=== PATIENT | female | born 1985 | race African-American/Black ===

== ENCOUNTER 2016-06-10 09:11 | Emergency (ER) | payer OTHER ==
[2016-06-10 09:17] VITALS: TEMP 98.2; BMI 30.2
[2016-06-10] MEDS ORDERED: OXYCODONE/APAP 5/325MG COMBO TABLET PO ONE (10:08)
--- NOTE | 2016-06-10 10:08 | PDOC ---
Attending Attestation - Resident Resident Name: Adriano Burris - ED Attending Attestation I have performed the following: I have examined & evaluated the patient, The case was reviewed & discussed with the resident, I agree w/resident's findings & plan - HPI HPI: 06/10/16 10:27 31y F ta approx 19 weeks presents with lower abdominal pain that is crampy , worse in the lower abdomen and radiates bilaterally around to the back, without associated n/v, f/c, vag bleeding, pt does endorse some yellowish discharge. on exam pt has a mildly diffusely tender lower abdomen w/o rebound/ guarding, her pelvic exam revealed some whitish discharge, no lesions, bleeding. bimanual exam deferred due to 2nd trimester . pt taking tylenol/motrin w/o improvement last dose of meds last night. pt notes she had US showing fibroids and her It Security Architect thought it was degenerative fibroids - will obtain blood work ua, abd US will reassess 06/10/16 15:25 US c/w fibroid uterus pt feeling improved with pain meds discussed the risks of taking percocet with the patient but pt undestands and accepts the risks states she thinks she needs it as the OTC meds were not sufficient. will have pt fu with her americanization teacher return precautions were discussed - Physicial Exam PE: 06/12/16 17:23 see above - Medical Decision Making 06/12/16 17:23 see aove
--- NOTE | 2016-06-10 10:14 | PDOC ---
History of Present Illness - General Chief Complaint: Pain, Acute Stated Complaint: ABD PAIN (19 WKS ) Time Seen by Provider: 06/10/16 09:35 History Source: Patient Exam Limitations: No Limitations - History of Present Illness Travel History: No Initial Comments: 06/10/16 10:08 31 yo F A1 with no significant PMHx presents with 3 day history of abdominal pain. She describes intermittent 10/10 cramp-like suprapubic pain that sometime radiates to her lower back bilaterally but more so on R side. No alleviating or aggravating factors. Has tried tylenol and ibuprofen with no relief. She saw or OB on 06/08/16 and had US done. Fetus looked fine and she was told pain most likely from degenerating fibroids which they have been monitoring.Given Tylenol and ibuprofen with no relief. Denies vaginal bleeding , fever, chills, nausea, or vomiting. Denies CP, TORRES, SOB, palpitations, diarrhea or constipation. Past History - Travel Traveled outside of the country in the last 30 days: No Close contact w/someone who was outside of country & ill: No - Past Medical History Allergies/Adverse Reactions: Allergies Allergy/AdvReac Type Severity Reaction Status Date / Time No Known Allergies Allergy Verified 06/10/16 09:17 Home Medications: Ambulatory Orders NK [No Known Home Medication] 06/10/16 Other medical history: PATIENT DENIES MEDICAL HISTORY - Surgical History Abdominal Surgery: Yes (UMBILICAL HERNIA) - Reproductive History Is Patient Now?: Yes (#): 2 Para: 1 - Psycho/Social/Smoking Cessation Hx Anxiety: No Suicidal Ideation: No Smoking Status: No Smoking History: Never smoked Have you smoked in the past 12 months: No Number of Cigarettes Smoked Daily: 0 Hx Alcohol Use: No Drug/Substance Use Hx: No Substance Use Type: None Review of Systems - Review of Systems Able to Perform ROS?: Yes Is the patient limited Korean proficient: No ABD/GI: Yes: Abdominal cramping. No: Nausea, Vomiting : Yes: Discharge (scant white). No: Dysuria Psychiatric: Yes: Anxiety All Other Systems: Reviewed and Negative *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 - Vital Signs Last Vital Signs Temp Pulse Resp BP Pulse Ox 98.2 F 93 H 18 114/71 100 06/10/16 09:15 06/10/16 09:15 06/10/16 09:15 06/10/16 09:15 06/10/16 09:15 - 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 General Appearance: Yes: Mild Distress HEENT: positive: EOMI, CASEY Neck: positive: Supple Respiratory/Chest: positive: Lungs Clear, Normal Breath Sounds. negative: Respiratory Distress, Accessory Muscle Use Cardiovascular: positive: Regular Rhythm, Regular Rate, S1, S2. negative: Edema , JVD, Murmur Female Pelvic Exam: positive: normal external exam, discharge, uterus (gravid ) . negative: vaginal bleeding Gastrointestinal/Abdominal: positive: Normal Bowel Sounds, Soft Musculoskeletal: positive: Normal Inspection, CVA Tenderness Extremity: positive: Normal Inspection, Normal Range of Motion Integumentary: positive: Normal Color, Dry, Warm. negative: Cyanotic, Erythema Neurologic: positive: automatic engraver II-XII NML intact, Fully Oriented, Alert, Normal Mood/ Affect, Normal Response, Motor Strength 5/ ED Treatment Course - LABORATORY CBC & Chemistry Diagram: 06/10/16 10:50 06/10/16 10:50 - RADIOLOGY Radiograph Interpretation: 06/10/16 13:37 EXAM#: TYPE/EXAM: RESULT: [id number] US/ LIMITED US Pelvis pain Pelvis ultrasound, transabdominal. The uterus is gravid with a single intrauterine fetus identified. Average sonographic gestational age is 19 weeks 3 days. Estimated weight is 274 g. Fluid is present in the stomach and in the urinary bladder. There is no evidence of hydrocephalus. heart rate is 155 bpm There is a hypoechoic anterior myometrial mass measuring 6.7 x 5.7 cm consistent with a fibroid. Another adjacent anterior myometrial masses present measuring 5.5 x 4.9 cm consistent with a fibroid. There is no free fluid in the cul-de-sac IMPRESSION: Single live intrauterine in cephalic presentation with average sonographic gestational age of 19 weeks 3 days. Follow -up for detailed anatomy evaluation is recommended Fibroid uterus with the largest fibroid measuring 6.7 x 5.7 cm. Reported By: Arlene Holder MD [id number] Medical Decision Making - Medical Decision Making 06/10/16 10:17 A:31 yo F A1 with no significant PMHx presents with 3 day history of abdominal pain. P: * Will send stat labs (CBC,CMP,UA, and quantitative BHcg). * transvaginal US and pain control. 06/10/16 13:34 * Labs WNL * Tranvaginal US results above. Pain most likely fibroids. * Pain control adequate with oxycodone. * Will give 7 tabs to go home a return precautions. *DC/Admit/Observation/Transfer Diagnosis at time of Disposition: Uterine fibroids affecting - Discharge Dispostion Disposition: HOME Admit: No - Patient Instructions Printed Discharge Instructions: DI for Uterine Fibroids Additional Instructions: Follow up with your ELECTRICIAN SECOND for normal scheduled care. Take pain meds as needed. Regular diet. Increase activity as tolerated. If pain worsens and develop fevers, chills, nausea or vomiting please return to ER.
[2016-06-10] MEDS ORDERED: OXYCODONE/APAP 5/325MG COMBO TABLET ONE (10:32)
[2016-06-10 10:57] LABS: PH,URINE 6.5 (5.0-8.0); URINE APPEARANCE CLEAR; URINE BILIRUBIN NEGATIVE (NEGATIVE); URINE COLOR LT. YELLOW; URINE GLUCOSE (UA) NEGATIVE (NEGATIVE); URINE KETONE NEGATIVE (NEGATIVE); URINE LEUK ESTERASE NEGATIVE (NEGATIVE); URINE NITRITE NEGATIVE (NEGATIVE); URINE PROTEIN NEGATIVE (NEGATIVE); URINE UROBILINOGEN 0.2 E.U/dl E.U./dl (0.2-1.0)
[2016-06-10 11:04] LABS: URINE BLOOD 3+ (NEGATIVE)
[2016-06-10 11:05] LABS: BASOPHIL 0.4 % (0-2.0); EOSINOPHIL 0.7 % (0-4.5); MCH 26.8 pg (25.7-33.7); MCHC 33.1 g/dl (32.0-36.0); MEAN CELL VOLUME 80.8 fl (80-96); MEAN PLT VOLUME 7.9 fl (7.5-11.1); NEUTROPHILS 73.4 % (42.8-82.8); PLATELET COUNT 234 K/MM3 (134-434); RDW 13.5 % (11.6-15.6); WHITE BLOOD COUNT 9.1 K/mm3 (4.0-10.0)
[2016-06-10 11:05] LABS: URINE BACTERIA RARE /hpf (NONE SEEN); URINE MUCUS RARE; URINE RBC 4 /hpf (0-3); URINE WBC 2 /hpf (3-5)
[2016-06-10 11:39] LABS: ALBUMIN 2.7 g/dl (3.4-5.0); ANION GAP 9 (8-16); BILIRUBIN,TOTAL 0.4 mg/dL (0.2-1.0); CALCIUM 8.3 mg/dL (8.5-10.1); CO2 23 mmol/L (21-32); CREATININE 0.5 mg/dL (0.55-1.02); GLUCOSE,RANDOM 67 mg/dL (74-106); SGOT/AST 15 U/L (15-37); SGPT/ALT 17 U/L (12-78); TOT PROT 6.5 g/dl (6.4-8.2)
[2016-06-10 11:54] LABS: ALK PHOS 75 U/L (45-117)
[2016-06-10 13:58] VITALS: BP 122/68; PULSE 84
== END 2016-06-10 13:59 | disposition home or self-care (01) ==
LOC: JER 09:11
DX: O34.12 Maternal care for benign tumor of corpus uteri, second trimester (principal); D25.0 Submucous leiomyoma of uterus; Z3A.19 19 weeks gestation of pregnancy
CPT/HCPCS: 36415; 76815-TC; 80053; 81003; 81015; 84702; 85025; 87491; 87591; 99282-25

== ENCOUNTER 2016-11-04 09:15 | Inpatient (IN) | payer OTHER ==
[2016-11-04] MEDS ORDERED: ELECTROLYTE-148 SOLN 500 ML IV ONE (09:30)
[2016-11-04 09:51] VITALS: BMI 34.9
[2016-11-04] MEDS: ELECTROLYTE-148 SOLN 1,000 ML IV SCH (11:00)
[2016-11-04] MEDS ORDERED: DEXTROSE 5%-LACTATED RINGERS 1,000 ML IV SCH (11:30)
--- NOTE | 2016-11-04 11:52 | HP ---
Past Medical History - Primary Care Physician PCP:: Dandy Cho - Admission Chief Complaint: 31yo P1 with at EGA 39wks and prior Section admitted for repeat delivery. 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 Cardiovascular: No: AFIB, Aneurysm, Aortic Insufficiency, Aortic Stenosis, CAD, CHF, Deep Vein Thrombosis, HTN, Hyperlipdemia, PR, Mitral Insufficiency, Mitral Stenosis, Murmur, Pulmonary Hypertension, Other Pulmonary: No: Asthma, Bronchitis, Cancer, COPD, O2 Dependent, Pneumonia, Previously Intubated, Pulmonary Embolus, Pulmonary Fibrosis, Sleep Apnea, Other Gastrointestinal: Yes: GERD Hepatobiliary: No: Cirrhosis, Cholelithiasis, Cholecystitis, Choledocholithiasis , Hepatitis A, Hepatitis B, Hepatitis C, Other Renal/: No: Renal Failure, Renal Inusuff, BPH, Cancer, Hematuria, Hemodialysis , Neurogenic Bladder, Renal Calculi, UTI, Other Reproductive: Yes: Fibroids (multiple) ...: 3 ...Para: 1 ( Delivery) ...Term: 1 ...Induced : 1 ...LMP: 02/05/16 ... Weeks Gestation by Dates: 39 ...EDC by Dates: 11/12/16 ...EDC by Sono: 11/11/16 Heme/Onc: Yes: Anemia Infectious Disease: No: AIDS, C-Diff, Herpes Zoster, HIV, MRSA, STD's, Tuberculosis, VREF, Other Psych: No: Addictions, Anxiety, Bipolar, Depression, Panic, Psychosis, Schizophrenia, Other Musculoskeletal: No: Bursitis, Chronic low back pain, Hemiparesis, Hemiplegia, Osteoarthritis, Paraplegia, Other Rheumatology: No: Fibromyalgia, Gout, Lupus, Rheumatoid Arthritis, Sarcoidosis, Vasculitis, Other ENT: No: Allergic Rhinitis, Sinusitis, Other Endocrine: No: Boston's Disease, Beulah's Disease, Diabetes Insipidus, Diabetes Mellitus, Hyperparathyroidism, Hyperthyroidism, Hypothyroidism, Osteopenia, SIADH, Other Dermatology: No: Basal Cell, Cellulitis, Eczema, Melanoma, Psoriasis, Squamous Cell, Other - Past Surgical History Past Surgical History: Yes: Hernia Repair (umbilical) Hx Myomectomy: No Hx Transabdominal Cerclage: No - Smoking History Smoking history: Never smoked Have you smoked in the past 12 months: No Aproximately how many cigarettes per day: 0 - Alcohol/Substance Use Hx Alcohol Use: No History of Substance Use: reports: None - Social History Usual Living Arrangement: Yes: With Spouse, With Child ADL: Independent History of Recent Travel: No Home Medications - Allergies Allergies/Adverse Reactions: Allergies Allergy/AdvReac Type Severity Reaction Status Date / Time No Known Allergies Allergy Verified 09/29/16 12:02 - Home Medications Home Medications: Ambulatory Orders Vitamins (Sjr) - 1 tab PO DAILY 06/27/16 Ferrous Sulfate 325 mg PO DAILY 09/29/16 Family Disease History - Family Disease History Family History: Denies Review of Systems - Review of Systems Constitutional: reports: No Symptoms Eyes: reports: No Symptoms HENT: reports: No Symptoms Neck: reports: No Symptoms Cardiovascular: reports: No Symptoms Respiratory: reports: No Symptoms Gastrointestinal: reports: No Symptoms Genitourinary: reports: No Symptoms Breasts: reports: No Symptoms Reported Musculoskeletal: reports: No Symptoms Integumentary: reports: No Symptoms Neurological: reports: No Symptoms Endocrine: reports: No Symptoms Hematology/Lymphatic: reports: No Symptoms Psychiatric: reports: No Symptoms Pain Intensity: 0 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 - Maternity Vital Signs: Vital Signs Temperature 98.0 F 11/04/16 09:42 Pulse Rate 100 H 11/04/16 09:42 Respiratory Rate 18 11/04/16 09:42 Blood Pressure 106/78 11/04/16 09:42 O2 Sat by Pulse Oximetry (%) Constitutional: Yes: Well Nourished, No Distress, Calm Eyes: Yes: WNL, Conjunctiva Clear HENT: Yes: WNL, Atraumatic, Normocephalic Neck: Yes: WNL, Supple, Trachea Midline Cardiovascular: Yes: WNL, Regular Rate and Rhythm Lungs: Clear to auscultation, Normal air movement - Abdominal Exam/OB Fundal Height: 40 Number of Fetuses: Single Presentation: Vertex Contractions: Yes Regularity: Irritability Intensity: Mild Monitor Mode: External Heart Rate (range): 130 Heart Rate Location: Midline Category: I Accelerations: Non-Uniform Decelerations: None - Vaginal Exam/OB Vaginal Bleediing: No Speculum Exam: No Dilatation (cm): 0 Amniotic Membrane Status: Intact Presentation: Vertex/Position Station: -4 - 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 Musculoskeletal: Yes: WNL Extremities: Yes: WNL Edema: No Integumentary: Yes: WNL Deep Tendon Reflex Grade: Normal +2 ...Motor Strength: WNL Psychiatric: Yes: WNL, Alert Hemorrhage Risk Assessment - Risk Factors Medium Risk Factors: Yes: Large myomas Risk Score: 1 Risk Level: Medium Risk Imaging - Results Ultrasound: Report Reviewed Assessment/Plan 31yo P1 with at EGA 39wks and prior Section admitted for repeat delivery. We discussed the risks and benefits of C/S at length, including but not limited to scarring, pain, bleeding, infection, injury to underlying organs and structures, need for additional surgery to repair/treat any problems or complications, complications/injuries, etc. I emphasized the increased risks of bleeding due to large fibroids, prior abdominal surgery, anterior placenta. The risks of hysterectomy explained. The pt verbalized her understanding and requested to proceed with surgery.
[2016-11-04] MEDS: OXYTOCIN 20 UNITS in 0.9% NS 1,000 ML IV SCH ×2 (14:00→21:30)
[2016-11-04] MEDS ORDERED: METHYLERGONOVINE MALEATE 0.2 MG/1 ML AMP IM PRN (14:30)
[2016-11-04] MEDS ORDERED: ONDANSETRON 4 MG/2 ML VIAL IVPB PRN (14:31)
[2016-11-04] MEDS ORDERED: WITCH HAZEL 50% (TUCKS) 40 PAD/JAR PAD TP PRN (14:35)
[2016-11-04] MEDS ORDERED: SENNOSIDES/DOCUSATE COMBO (SENNA PLUS) TABLET (UD) PO PRN (14:35)
--- NOTE | 2016-11-04 15:52 | OP ---
Operative Note - Note: Operative Date: 11/04/16 Pre-Operative Diagnosis: at EGA 39wks. Prior C/S. Fibroid uterus. Anemia Operation: Repeat LT C/S Findings: large uterine fibroids above the MAGGY, live baby girl in vtx presentation, no meconium, 9/9. Normal ovaries and Fallopian tubes. Post-Operative Diagnosis: Same as Pre-op Surgeon: Dandy Cho Forest Patrolman: Ruiz Prater Anesthesiologist/TIRE DUSTER: Arianna Esqueda Anesthesia: Spinal Specimens Removed: Placenta Estimated Blood Loss (mls): 850 Drains & Tubes with Location: Danielle cath Drains, Volume Out (mls): 300 Blood Volume Replaced (mls): 0 Fluid Volume Replaced (mls): 1,500 Operative Report Dictated: Yes
--- NOTE | 2016-11-04 15:58 | PN ---
Delivery - Delivery Section: Repeat, Low Flap Transverse Type of Anesthesia: Spinal Episiotomy/Laceration: None EBL (cc): 850 Delivery, Single - Stages of Labor Date of Delivery: 11/04/16 Time of Delivery: 13:10 Date Placenta Delivered: 11/04/16 Time Placenta Delivered: 13:11 Placenta: Yes: Manual Removal, Normal Configuration - Condition of Mule Developer/Plant Assigner Present: Yes Name: Rokc Winters Gender: Female Weight: 3.317 kg Position: OA Total Hours ROM (Hrs/Mins): 1M - 1 Minute Total Score: 9 5 Minutes Total Score: 9 - Feeding Plan Initial Plan: Elected not to breastfeed exclusively throughout hospitalization Remarks - Remarks Remarks: Large uterine fibroids throughout the uterus but above MAGGY.
[2016-11-04] MEDS: IBUPROFEN 800 MG/8 ML IJ IVPB PRN ×2 (16:09→23:16)
[2016-11-05] MEDS: SIMETHICONE 80 MG TAB.CHEW (FP) PO PRN ×4 (05:30→20:46)
[2016-11-05] MEDS: IBUPROFEN 600 MG TABLET (FP) PO PRN ×4 (05:31→20:46)
[2016-11-05 07:24] LABS: BASOPHIL 0.4 % (0-2.0); EOSINOPHIL 0.4 % (0-4.5); MCH 26.8 pg (25.7-33.7); MCHC 32.8 g/dl (32.0-36.0); MEAN CELL VOLUME 81.9 fl (80-96); MEAN PLT VOLUME 8.2 fl (7.5-11.1); NEUTROPHILS 75.3 % (42.8-82.8); PLATELET COUNT 177 K/MM3 (134-434); RDW 14.8 % (11.6-15.6)
--- NOTE | 2016-11-05 08:54 | PN ---
Progress Note, Physician Chief Complaint: Pt. not yet out of bed. pain controlled, no anesthesia complaints. - Current Medication List Current Medications: Active Medications Bisacodyl (Dulcolax Suppository -) 10 mg RC PRN PRN PRN Reason: CONSTIPATION Diphenhydramine HCl (Benadryl Injection -) 25 mg IVPUSH Q4H PRN PRN Reason: Pruritis Last Admin: 11/04/16 21:59 Dose: 25 mg Diphtheria/Tetanus/Acell Pertussis (Boostrix -) 0.5 ml IM .ONCE ONE Stop: 11/05/16 10:01 Enoxaparin Sodium (Lovenox -) 40 mg SQ DAILY [facility] Dextrose/Lactated Ringer's (D5-Lr -) 1,000 mls @ 125 mls/hr IV ASDIR [facility] Oxytocin/Sodium Chloride (Normal Saline+20 Units Oxytocin -) 1,000 mls @ 125 mls/hr IV ASDIR [facility] Last Admin: 11/04/16 21:30 Dose: 125 mls/hr Parenteral Electrolytes (Plasma-Lyte 148 -) 1,000 mls @ 125 mls/hr IV ASDIR [facility] Last Admin: 11/04/16 11:00 Dose: 125 mls/hr Ibuprofen (Motrin -) 600 mg PO Q4H PRN PRN Reason: PAIN Last Admin: 11/05/16 05:31 Dose: 600 mg Ibuprofen (Caldolor Injection -) 800 mg IVPB Q8H PRN PRN Reason: PAIN OR FEVER Last Admin: 11/04/16 23:16 Dose: 800 mg Methylergonovine Maleate (Methergine Injection -) 0.2 mg IM Q4H PRN PRN Reason: Excessive Bleeding (L&D) Oxycodone HCl (Roxicodone -) 5 mg PO Q4H PRN PRN Reason: PAIN LEVEL 1-5 Multivit/Folic Acid/Iron ( Vitamins (Sjr) -) 1 tab PO DAILY [facility] Senna/Docusate Sodium (Pericolace -) 2 tablet PO HS PRN PRN Reason: CONSTIPATION Simethicone (Mylicon -) 80 mg PO Q4H PRN PRN Reason: GAS Last Admin: 11/05/16 05:30 Dose: 80 mg Witch Darya/Glycerin (Tucks Pads -) 1 pad TP PRN PRN PRN Reason: PAIN - Objective Vital Signs: Vital Signs Temperature 98.5 F 11/05/16 06:00 Pulse Rate 77 11/05/16 06:00 Respiratory Rate 18 11/05/16 06:00 Blood Pressure 120/76 11/05/16 06:00 O2 Sat by Pulse Oximetry (%) 99 11/04/16 14:15 Constitutional: Yes: Well Nourished, No Distress, Calm Musculoskeletal: Yes: WNL Neurological: Yes: WNL, Alert, Oriented ...Motor Strength: WNL Labs: CBC, BMP 11/05/16 07:05 Assessment/Plan POD#1 s/p repeat under spinal with duramorph. Narayan rollins. D/C from anesthesia care once she ambulates and voids.
[2016-11-05] MEDS: oxyCODONE HCL 5 MG TABLET PO PRN ×3 (09:16→20:47)
[2016-11-05] MEDS: ENOXAPARIN NA (PORCINE) 40 MG/0.4 ML DISP.SYRIN SQ SCH (09:17)
[2016-11-05] MEDS: PRENATAL VITAMINS W/ FOLIC ACID TABLET (FP) PO SCH (09:17)
--- NOTE | 2016-11-05 10:45 | PN ---
Progress Note (short form) - Note Progress Note: pod 1 doing well, has cramps , no excess vaginal bleeding CBC, BMP 11/05/16 07:05 Last Vital Signs Temp Pulse Resp BP Pulse Ox 98.5 F 77 18 120/76 99 11/05/16 06:00 11/05/16 06:00 11/05/16 06:00 11/05/16 06:00 11/04/16 14:15 abdomen soft, no distension, BS present , no cva incision dry, clean no calf tenderness no excess vaginal bleeding plan ambulate , pain management, advance diet
[2016-11-05] MEDS ORDERED: DOCUSATE SODIUM 100 MG CAPSULE (FP) PO PRN (10:47)
[2016-11-05] MEDS ORDERED: DIPHTH,PERTUSS(ACELL),TET 0.5 ML DISP.SYRIN IM ONE (11:00)
[2016-11-05] MEDS ORDERED: FLU VACC QS2017-18 36MOS UP/PF 60 MCG/0.5 ML SYRINGE IM ONE (11:00)
[2016-11-05] MEDS ORDERED: BISACODYL 10 MG SUPP.RECT RC PRN (14:30)
--- NOTE | 2016-11-05 19:23 | OP ---
DATE OF OPERATION: 11/04/2016 PREOPERATIVE DIAGNOSES: at estimated gestational age of 39 weeks and 0 days; previous section; fibroid uterus; anemia. POSTOPERATIVE DIAGNOSES: at estimated gestational age of 39 weeks and 0 days; previous section; fibroid uterus; anemia; delivered. PROCEDURE: Repeat low transverse section via Pfannenstiel skin incision. SURGEON: Dandy Cho MD CAMP RECREATION SPECIALIST: Ruiz Prater MD JUSTIFICATION FOR CAMP RECREATION SPECIALIST: Surgical complexity and necessity for safe operation. ANESTHESIOLOGIST: Arianna Esqueda DO ANESTHESIA: Spinal. COMPLICATIONS: None. ESTIMATED BLOOD LOSS: 850 mL URINE OUTPUT: 300 mL of clear urine at the end of the procedure. INTRAVENOUS FLUIDS: 1500 mL of crystalloids. COMPLICATIONS: None. PATHOLOGY: Placenta. FINDINGS: Markedly enlarged, gravid uterus with multiple fibroids throughout the uterus. Some of the fibroids were large. However, all of the fibroids were above the lower uterine segment. Live baby girl in vertex presentation. head below the fibroids. No meconium in amniotic fluid. Apgars 9 and 9. Normal ovaries and fallopian tubes. Baby's weight is 3317 g. DESCRIPTION OF PROCEDURE: The patient was met preoperatively. Risks, benefits, and alternatives of surgery were discussed in details. All questions were answered. The patient was then brought to the OR with the IV running. She was placed on the surgical table in the sitting position. The spinal anesthesia was achieved without difficulty. The patient was then placed in a supine position with a leftward tilt. A Danielle catheter was introduced and left to drain to gravity. The patient was then prepped and draped in the usual sterile fashion. A timeout procedure was conducted as per standard protocol. The surgeons then proceeded with the operation. A Pfannenstiel skin incision was made approximately 2-3 cm above the pubic symphysis. The incision was carried down to the level of fascia. The fascia was incised in the midline, and the incision was extended bilaterally using Peñaloza scissors. The fascia was then dissected away from the rectus muscles superiorly and inferiorly. The rectus muscles were in the midline bluntly. The peritoneum was identified and entered sharply. The peritoneal incision was extended superiorly and inferiorly. The lower uterine segment was noted to be thin but free of fibroids. The bladder peritoneum was dissected away from the lower uterine segment using sharp dissection. The bladder was reflected using a Jaylon retractor. The lower uterine segment was incised transversely using a knife. The uterine incision was then extended bilaterally using bandage scissors. The fetus was delivered from vertex presentation without complications. The umbilical cord was clamped and cut. The baby was crying spontaneously and handed to the waiting airport refueling handler. The placenta was then removed manually without complications. The uterine cavity was cleared of all clots and debris using laparotomy pads. The uterine incision was then closed using a 0 Biosyn suture in a running locking stitch with good hemostasis and approximation. The uterine incision was then imbricated using a secondary layer of closure with a 0 Biosyn suture. The bladder peritoneum was also approximated using a 2-0 chromic suture. Good hemostasis was noted. The operative site was irrigated using copious amounts of normal saline. Once the saline was aspirated, good hemostasis was confirmed. The abdominal peritoneum was then closed using a 2-0 chromic suture in a running stitch. The rectus muscles were approximated in the midline using several interrupted 2-0 chromic sutures. The fascia was then closed using a 0 Vicryl suture with a running stitch. The subcutaneous adipose tissues were approximated to eliminate space with several 2-0 chromic sutures. The skin was closed with a 4-0 Vicryl suture using a subcutaneous stitch. Sponge, lap, and needle counts were correct. The uterus was noted to be well contracted with good hemostasis. The patient was transferred to the recovery room awake and in stable condition. Bibi [id number]
[2016-11-06] MEDS: IBUPROFEN 600 MG TABLET (FP) PO PRN ×4 (05:25→22:09)
[2016-11-06] MEDS: SIMETHICONE 80 MG TAB.CHEW (FP) PO PRN ×4 (05:25→22:08)
[2016-11-06] MEDS: oxyCODONE HCL 5 MG TABLET PO PRN ×4 (05:26→22:08)
[2016-11-06] MEDS ORDERED: PRENATAL VITAMINS W/ FOLIC ACID TABLET (FP) PO SCH (10:00)
[2016-11-06] MEDS: FERROUS SO4 325 MG TABLET (FP) PO SCH (10:17)
[2016-11-06] MEDS: ENOXAPARIN NA (PORCINE) 40 MG/0.4 ML DISP.SYRIN SQ SCH (10:17)
[2016-11-06] MEDS: PRENATAL VITAMINS W/ FOLIC ACID TABLET (FP) PO SCH (10:18)
--- NOTE | 2016-11-06 14:02 | PN ---
Progress Note (short form) - Note Progress Note: pod 2 s/p c/s passing gas , has mild cramps CBC, BMP 11/05/16 07:05 Last Vital Signs Temp Pulse Resp BP Pulse Ox 97.9 F 95 H 20 116/70 99 11/05/16 19:00 11/05/16 19:00 11/05/16 19:00 11/05/16 19:00 11/04/16 14:15 abdomen soft, no distension , no cva.incision dry, clean, healing well no calf tenderness no calf tenderness plan ambulate, cbc in am
[2016-11-07] MEDS: IBUPROFEN 600 MG TABLET (FP) PO PRN ×4 (04:03→21:49)
[2016-11-07] MEDS: SIMETHICONE 80 MG TAB.CHEW (FP) PO PRN ×3 (04:03→21:48)
[2016-11-07] MEDS: oxyCODONE HCL 5 MG TABLET PO PRN ×2 (04:04→11:08)
[2016-11-07] MEDS: ACETAMINOPHEN 325 MG TABLET (FP) PO PRN ×2 (04:07→21:50)
[2016-11-07 06:57] LABS: BASOPHIL 0.4 % (0-2.0); EOSINOPHIL 2.7 % (0-4.5); MCH 26.1 pg (25.7-33.7); MCHC 31.8 g/dl (32.0-36.0); MEAN CELL VOLUME 82.1 fl (80-96); MEAN PLT VOLUME 8.5 fl (7.5-11.1); NEUTROPHILS 59.2 % (42.8-82.8); PLATELET COUNT 207 K/MM3 (134-434); RDW 14.8 % (11.6-15.6); WHITE BLOOD COUNT 6.2 K/mm3 (4.0-10.0)
--- NOTE | 2016-11-07 08:41 | PN ---
Progress Note (short form) - Note Progress Note: pod 3 s/p c/s ,doing well, has breast engorgement CBC, BMP 11/07/16 05:25 Last Vital Signs Temp Pulse Resp BP Pulse Ox 97.1 F L 69 20 127/82 99 11/06/16 21:24 11/06/16 21:24 11/06/16 21:24 11/06/16 21:24 11/04/16 14:15 abdomen soft, incision dry, clean no calf tenderness plan ambulate .encourage breast feeding plan for d/c home in am
[2016-11-07] MEDS: PRENATAL VITAMINS W/ FOLIC ACID TABLET (FP) PO SCH (10:31)
[2016-11-07] MEDS: FERROUS SO4 325 MG TABLET (FP) PO SCH (10:31)
[2016-11-07] MEDS: ENOXAPARIN NA (PORCINE) 40 MG/0.4 ML DISP.SYRIN SQ SCH (10:32)
[2016-11-07] MEDS: ELECTROLYTE-148 SOLN 1,000 ML IV SCH (13:32)
[2016-11-07] MEDS: OXYTOCIN 20 UNITS in 0.9% NS 1,000 ML IV SCH (19:40)
[2016-11-08] MEDS: SIMETHICONE 80 MG TAB.CHEW (FP) PO PRN (01:33)
[2016-11-08] MEDS: IBUPROFEN 600 MG TABLET (FP) PO PRN ×2 (01:34→10:54)
--- NOTE | 2016-11-08 09:30 | DS ---
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 Vital Signs: Vital Signs Temperature 98.6 F 11/08/16 00:25 Pulse Rate 78 11/08/16 00:25 Respiratory Rate 18 11/08/16 00:25 Blood Pressure 120/76 11/08/16 00:25 O2 Sat by Pulse Oximetry (%) 99 11/04/16 14:15 Constitutional: Yes: Well Nourished, No Distress, Calm Eyes: Yes: WNL, Conjunctiva Clear, EOM Intact HENT: Yes: WNL, Atraumatic, Normocephalic Neck: Yes: WNL, Supple, Trachea Midline Cardiovascular: Yes: WNL, Regular Rate and Rhythm Respiratory: Yes: WNL, Regular, CTA Bilaterally Gastrointestinal: Yes: WNL, Normal Bowel Sounds, Soft ...Rectal Exam: Yes: Deferred Renal/: Yes: WNL External Genitalia: Yes: Normal Internal Exam Deferred: Yes ....Post : Yes: Uterus firm, Uterus non-tender, Slight lochia rubra Breast(s): Yes: WNL Musculoskeletal: Yes: WNL Extremities: Yes: WNL Edema: Yes Edema: LLE: 1+, RLE: 1+ Integumentary: Yes: WNL Wound/Incision: Yes: Clean/Dry, Well Approximated, Sutures Intact Neurological: Yes: WNL, Alert, Oriented ...Motor Strength: WNL Psychiatric: Yes: WNL, Alert, Oriented Labs: CBC, BMP 11/07/16 05:25 Delivery - Delivery Section: Repeat, Low Flap Transverse Type of Anesthesia: Spinal Episiotomy/Laceration: None EBL (cc): 850 Delivery, Single - Stages of Labor Date of Delivery: 11/04/16 Time of Delivery: 13:10 Time Placenta Delivered: 13:11 Placenta: Yes: Manual Removal, Normal Configuration - 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 care instructions reviewed. Continue routine postop care. Ambulation encouraged Discharge Summary Reason For Visit: C SECTION at EGA 39wk Prior C/S Fibroid uterus Anemia Procedures: Principal: Repeat LT C/S Hospital Course: Normal recovery Condition: Good - Instructions Diet, Activity, Other Instructions: Physical activity Resume your normal everyday activity as tolerated no heavy lifting or exercise until seen by your surgeon. You may walk unlimited yara of and climb stairs. You may resume driving the car when you feel safe and comfortable behind the wheel. No sexual activity as instructed. Wound care If you have a bandage, leave it on, and keep dry for 48-72 hours. After that time discard the outer bandage. If they are tapes on the skin under the out of bandage leave them in place. They will peel off in the next 7 to 10 days. Do Not Peel them off. You may shower the day after surgery. If there are tapes present on the skin, you may shower over them. Diet There are no dietary restrictions. Eat healthy, high-fiber foods. Drink 6 to 8 glasses of liquid each day. This will assist in keeping your bowels are regular. Pain management You may take Tylenol or acetaminophen or Ibuprofen (for example, Motrin, Advil etc.) from my pain prescription medication is ordered should be taken as prescribed for moderate to severe pain. Call MD for any of the following: Severe pain not relieved by medication Fever of 101 or higher Excessive bleeding or drainage on dressing Inability to urinate Referrals: Dandy Cho MD [Staff Physician] - Disposition: HOME - Home Medications Comprehensive Discharge Medication List: Ambulatory Orders Vitamins (Sjr) - 1 tab PO DAILY 06/27/16 Ferrous Sulfate 325 mg PO DAILY 09/29/16
[2016-11-08] MEDS ORDERED: SODIUM PHOSPHATE/NA BIPHOS 133 ML ENEMA PR ONE (09:38)
[2016-11-08] MEDS: ACETAMINOPHEN 325 MG TABLET (FP) PO PRN (10:53)
[2016-11-08] MEDS: FERROUS SO4 325 MG TABLET (FP) PO SCH (10:54)
[2016-11-08] MEDS: PRENATAL VITAMINS W/ FOLIC ACID TABLET (FP) PO SCH (10:55)
[2016-11-08] MEDS: ENOXAPARIN NA (PORCINE) 40 MG/0.4 ML DISP.SYRIN SQ SCH (10:56)
[2016-11-08 12:49] VITALS: BP 144/89; PULSE 79; TEMP 98.1
--- NOTE | 2016-11-09 14:37 | PATH ---
Surgical Pathology Report Patient Name: WINSTON SEARS Med. Rec. 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 Specimen(s) Received PLACENTA Clinical History , 39 gestational weeks, 2006 primary c/section Repeat c/section Final Diagnosis PLACENTAL DELIVERY: FOCALLY DISRUPTED THIRD TRIMESTER PLACENTA WITH MODERATE PREVILLOUS, PERIVILLOUS, AND PRECHORIONIC FIBRIN DEPOSITION, THREE VESSEL UMBILICAL CORD, AND PLACENTAL MEMBRANES WITH FOCAL AMNION SQUAMOUS METAPLASIA (AMNION NODOSUM). Electronically Signed Jorje Plasencia M.D. Gross Description The specimen is received fresh, labeled "placenta" and is a 487 gram, 20.0 x 18.5 x 1.8 cm placenta with attached membranes and umbilical cord. The attached membranes are boyce, translucent with focal opacities and insert marginally. The umbilical cord measures 20 cm. in length and averages 1.2 cm. in diameter. The cord inserts eccentrically, 3.5 cm. to the nearest margin. No true knots or strictures are identified. Cut surface of the umbilical cord reveals 3 vessels. The surface is skaggs-blue with fibrin deposition and appropriate caliber vessels. The maternal surface is red-brown with focal defects. Sectioning reveals red-brown, spongy parenchyma. No focal lesions are identified. Underground Supervisor sections are submitted in three cassettes as follows: 1- membrane rolls and umbilical cord; 2-3- full thickness sections of placenta. 11/08/2016 [facility]/08[facility]2016
== END 2016-11-08 14:20 | disposition home or self-care (01) | DRG 766 ==
LOC: JLDR 09:15 → J3W 15:49
PROVIDERS: ADMIT Obstetrics & Gynecology; ATTEND Obstetrics & Gynecology
PROC: 10D00Z1 Extraction of Products of Conception, Low, Open Approach (ICD-10-PCS; principal; 2016-11-04)
DX: O34.211 Maternal care for low transverse scar from previous cesarean delivery (principal); O99.02 Anemia complicating childbirth; D64.9 Anemia, unspecified; O34.13 Maternal care for benign tumor of corpus uteri, third trimester; D25.9 Leiomyoma of uterus, unspecified; Z3A.39 39 weeks gestation of pregnancy; Z37.0 Single live birth
CPT/HCPCS: 36415; 85025; 86850; 86900; 86901; 88307-TC; 90686; 90715; G0008

== ENCOUNTER 2017-07-03 05:21 | Day surgery (SDC) | payer OTHER ==
[2017-06-30 09:36] VITALS: BMI 31.1
[2017-07-03] MEDS ORDERED: MIDAZOLAM HCL 2 MG/2 ML SINGLE DOSE VIAL ONE (11:39)
[2017-07-03] MEDS ORDERED: ceFAZolin SODIUM 1 GM VIAL ONE (11:52)
[2017-07-03] MEDS ORDERED: LIDOCAINE HCL/PF 2% SDV 5ML VIAL ONE (11:52)
[2017-07-03] MEDS ORDERED: DEXAMETHASONE SOD PHOSPHATE 4 MG/1 ML VIAL ONE (11:52)
[2017-07-03] MEDS ORDERED: PROPOFOL 20 ML ONE (11:57)
[2017-07-03] MEDS ORDERED: SUCCINYLCHOLINE CHLORIDE 200 MG/10 ML VIAL ONE (11:58)
[2017-07-03] MEDS ORDERED: ceFAZolin SODIUM 1 GM VIAL IVPB ONE (12:01)
[2017-07-03] MEDS ORDERED: oxyCODONE HCL 5 MG TABLET PO PRN (12:30)
[2017-07-03] MEDS ORDERED: LACTATED RINGERS SOLUTION 1,000 ML IV SCH (12:30)
[2017-07-03] MEDS ORDERED: ONDANSETRON 4 MG/2 ML VIAL IVPUSH PRN (12:30)
--- NOTE | 2017-07-03 12:34 | HP ---
History & Physical Update - Assessment Currently as noted:: IUP at 8-9 wks, multiple fibroids - Plan Currently as noted:: US guided suction, D&C, termination of
[2017-07-03] MEDS ORDERED: IBUPROFEN 600 MG TABLET (FP) PO PRN (12:35)
[2017-07-03 13:52] VITALS: PULSE 75
[2017-07-03 18:11] VITALS: BP 105/62; TEMP 98.8
--- NOTE | 2017-07-04 16:29 | PATH ---
Surgical Pathology Report Patient Name: WINSTON SEARS [facility]. Rec. #: [id number] /Age/Gender: 1985 (Age: 32) / F Account: [id number] Location: [facility] SURGICAL Taken: 07/03/2017 Received: 07/03/2017 Reported: 07/04/2017 Physicians: Dandy Cho M.D. Specimen(s) Received PRODUCTS OF CONCEPTION Clinical History Fibroid uterus, termination of Final Diagnosis PRODUCTS OF CONCEPTION: CHORIONIC VILLI PRESENT, CONSISTENT WITH PRODUCTS OF CONCEPTION. Electronically Signed Sun David M.D. Gross Description Received in formalin labeled "products of conception," is an 8.0 x 5.0 x 1.2 cm aggregate of boyce red soft tissue fragments. Villous tissue is identified. No somatic tissue is identified. A customer account representative portion is submitted in one cassette. /07/03/201707/03/2017
--- NOTE | 2017-08-07 19:08 | OP ---
DATE OF OPERATION: 07/03/2017 PREOPERATIVE DIAGNOSES: Intrauterine at 8 weeks of estimated gestational age, unwanted ; multiple uterine fibroids. POSTOPERATIVE DIAGNOSES: Intrauterine at 8 weeks of estimated gestational age, unwanted ; multiple uterine fibroids. PROCEDURE: Suction dilatation and curettage, surgical . SURGEON: Caroline Aquino MD DIE SINKING MACHINE OPERATOR: None. ANESTHESIA: General. COMPLICATIONS: None. PATHOLOGY: Products of conception. INTRAOPERATIVE IMAGING: Real-time ultrasonography. FINDINGS: Examination under anesthesia revealed an enlarged, fibroid uterus. Ultrasound revealed an intrauterine . No retained products of conception were noted at the end of the procedure. No complications. DESCRIPTION OF PROCEDURE: The patient was met preoperatively. Risks, benefits, and alternatives of surgery were discussed in details. All questions were answered. The patient was then brought to the OR with the IV running. She was placed on a surgical table in the supine position. The general anesthesia was achieved without difficulty. The patient was then placed in a dorsal lithotomy position using adjustable Odell stirrups. A timeout procedure was conducted as per standard protocol. The patient was then examined under anesthesia with the findings as described above. A preoperative ultrasound examination was performed. The patient was then prepped and draped in the usual sterile fashion. A weighted speculum was introduced inside the vagina with good visualization of the cervix. The intracervical os was dilated to accommodate a size 25 Camp dilator. A suction curettage was then performed under direct ultrasound guidance. Once the procedure was completed, a sharp uterine curettage was gently performed to make sure there were no retained products of conception. Intraoperative imaging confirmed an empty uterine cavity. Following this, the instruments were removed from the patient. Good hemostasis was confirmed. Sponge, lap, instrument counts were correct. The patient was returned to supine position and transferred to the recovery room in stable condition and awake. CAROLINE AQUINO M.D. [id number]
== END 2017-07-03 15:30 | disposition home or self-care (01) ==
LOC: JASU-SURG 05:21
PROVIDERS: ATTEND Obstetrics & Gynecology
PROC: 10A07Z6 Abortion of Products of Conception, Vacuum, Via Natural or Artificial Opening (ICD-10-PCS; principal; 2017-07-03 10:00)
DX: Z33.2 Encounter for elective termination of pregnancy (principal); D25.9 Leiomyoma of uterus, unspecified
CPT/HCPCS: 76998-TC; 86850; 86900; 86901; 88305-TC; 94760

== ENCOUNTER 2018-10-23 21:07 | Emergency (ER) | payer OTHER ==
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
[2018-10-23 21:14] VITALS: TEMP 98; BMI 30.2
[2018-10-24] MEDS ORDERED: SODIUM CHLORIDE 1,000 ML IV STA (00:33)
[2018-10-24 01:36] LABS: BASO % 0.7 % (0-2.0); EOS % 1.6 % (0-4.5); HEMATOCRIT 37.4 % (32.4-45.2); HEMOGLOBIN 12.2 GM/dL (10.7-15.3); MCH 26.9 pg (25.7-33.7); MCHC 32.5 g/dl (32.0-36.0); MEAN CELL VOLUME 82.7 fl (80-96); MEAN PLT VOLUME 8.2 fl (7.5-11.1); MONO % 11.5 % (3.8-10.2); NEUT % 34.2 % (42.8-82.8); PLATELET COUNT 252 K/MM3 (134-434); RBC 4.53 M/mm3 (3.60-5.2); RDW 13.1 % (11.6-15.6); WHITE BLOOD COUNT 4.6 K/mm3 (4.0-10.0)
[2018-10-24 01:48] LABS: INR 1.2 (0.83-1.09); PROTHROMBIN TIME (PATIENT) 14.2 SEC (9.7-13.0)
[2018-10-24 02:03] LABS: ALBUMIN 3.9 g/dl (3.4-5.0); BILIRUBIN,TOTAL 0.4 mg/dL (0.2-1); BLOOD UREA NITROGEN 15.8 mg/dL (7-18); POTASSIUM 3.9 mmol/L (3.5-5.1)
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
[2018-10-24 04:16] VITALS: BP 135/80; PULSE 86
--- NOTE | 2018-10-24 09:02 | EKG ---
Test Reason : Blood Pressure : / mmHG Vent. Rate : 063 BPM Atrial Rate : 063 BPM P-R Int : 178 ms QRS Dur : 076 ms QT Int : 414 ms P-R-T Axes : 060 069 075 degrees QTc Int : 423 ms POOR DATA QUALITY, INTERPRETATION MAY BE ADVERSELY AFFECTED NORMAL SINUS RHYTHM NORMAL ECG WHEN COMPARED WITH ECG OF 08-JAN-2016 19:07, NO SIGNIFICANT CHANGE WAS FOUND Confirmed by DEANGELO PUCKETT, HARESH ([id number]) on 10/24/2018 9:01:37 AM Referred By: Confirmed By:HARESH BRIGHT MD
== END 2018-10-24 04:17 | disposition home or self-care (01) ==
LOC: JER 21:07
PROC: 3E0337Z Introduction of Electrolytic and Water Balance Substance into Peripheral Vein, Percutaneous Approach (ICD-10-PCS; principal; 2018-10-23)
DX: R42 Dizziness and giddiness (principal)
CPT/HCPCS: 36415; 71046-TC-FY; 80053; 82550; 82553; 84484; 84703; 85025; 85610; 93005; 93010; 99282-25; J7030